=== PATIENT | female | born 1970 | race Caucasian/White ===

== ENCOUNTER → 2020-01-21 15:10 | Outpatient (BNVA) | payer BC, SELFPAY | PROVIDERS: PCP Nurse Practitioner Family; Referring Provider Nurse Practitioner Family; Visit Provider Orthopaedic Surgery | DX: M25.561 Pain in right knee (principal); M17.11 Unilateral primary osteoarthritis, right knee | CPT/HCPCS: 73560; 73565 ==

== ENCOUNTER → 2022-11-12 09:33 | Outpatient (BNVA) | payer MEDICAID, SELFPAY | PROVIDERS: PCP Family Medicine; Visit Provider Surgery | DX: Z12.11 Encounter for screening for malignant neoplasm of colon (principal) | CPT/HCPCS: 99024; 99203 ==

== ENCOUNTER 2022-11-26 10:19 | Outpatient (CLI) | payer MEDICAID, SELFPAY ==
--- NOTE | 2022-11-26 10:29 | MM_ITS ---
WS: [id number] BILATERAL SCREENING DIGITAL TOMOSYNTHESIS MAMMOGRAM WITH CAD HISTORY: SCREENING COMPARISON: None available. Bilateral CC and MLO views with tomosynthesis and synthetic mammography submitted. Computer aided det ection analyzed. Breast composition: There are scattered areas of fibroglandular density. No suspicious masses, microc alcifications or architectural distortion. Benign calcifications within each breast. IMPRESSION: MM/[place] [id number] BI-RADS: 2-Benign FOLLOW UP: 1 Year Follow-up
== END 2022-11-26 10:20 | disposition home or self-care (01) ==
PROVIDERS: PCP Family Medicine; Visit Provider Family Medicine
DX: Z12.31 Encounter for screening mammogram for malignant neoplasm of breast (principal)
CPT/HCPCS: 77063; 77067

== ENCOUNTER 2023-01-12 09:01 | Day surgery (SDC) | payer MEDICAID, SELFPAY ==
--- NOTE | 2023-01-12 09:06 | PM.HP ---
Providers/Chief Complaint Primary Care Provider: Ronald Cordero Chief Complaint: Colon cancer screening History of Present Illness Kerrie Carrington is a 52 year old female Review of Systems General: Reports: 10 or more systems reviewed and unremarkable except in HPI and below Medications/Allergies Home Medications Medication Instructions Recorded Confirmed Last Taken Type benzonatate 100 mg capsule 100 mg PO DAILY 01/21/20 01/10/23 Unknown History (Estephania Castro) dulaglutide 0.75 mg/0.5 mL 0.75 mg SUBCUT .weekly 01/21/20 01/10/23 12/29/22 History subcutaneous pen injector (Trulicity) gabapentin 400 mg capsule 400 mg PO TID 01/21/20 01/10/23 01/10/23 History hydrocodone 5 mg-acetaminophen 325 1 tab PO Q8H PRN Pain 01/21/20 01/10/23 01/10/23 History mg tablet ([place]) lisinopril 20 mg tablet 20 mg PO DAILY 01/21/20 01/10/23 01/10/23 History meloxicam 7.5 mg tablet 7.5 mg PO DAILY 01/21/20 01/10/23 01/10/23 History metformin 1,000 mg tablet 1,000 mg PO BID 01/21/20 01/10/23 01/10/23 History insulin human U-100 NPH-regulr ml SUBCUT 11/12/22 11/12/22 01/07/23 History 70-30 mix 100 unit/mL subcutaneous susp (Humulin 70/30 U-100 Insulin) pioglitazone 30 mg tablet 30 mg PO DAILY 11/12/22 01/10/23 01/10/23 History simvastatin 20 mg tablet 20 mg PO DAILY 11/12/22 01/10/23 01/07/23 History budesonide-formoterol HFA 160 2 puff inhalation BID 01/10/23 01/10/23 01/03/23 History mcg-4.5 mcg/actuation aerosol inhaler (Symbicort) bupropion HCl 150 mg tablet,12 hr 150 mg PO DAILY 01/10/23 01/10/23 01/10/23 History sustained-release buspirone 5 mg tablet 5 mg PO TID 01/10/23 01/10/23 01/10/23 History tizanidine 2 mg tablet 2 mg PO TID PRN Muscle Spasm 01/10/23 01/10/23 01/09/23 History varenicline 1 mg tablet 1 mg PO BID 01/10/23 01/10/23 01/10/23 History Allergies Allergy/AdvReac Type Severity Reaction Status Date / Time tramadol Allergy hives Verified 11/12/22 10:29 PFSH Acute PFSH: Medical History (Updated 01/12/23 @ 09:06 by Dallas Martino DO) COPD (chronic obstructive pulmonary disease) Hypertension Type 2 diabetes mellitus Surgical History (Updated 01/12/23 @ 09:06 by Dallas Martino DO) Hx laparoscopic cholecystectomy Hx of section Family History Unknown Cancer colon- grandma mother lung/cervical Hypertension Stroke Social History Smoking and tobacco/nicotine status: current every day tobacco/nicotine user Alcohol intake: never Substance/Drug Use: never A&P Assessment and plan (1) Colon cancer screening: Plan Colonoscopy Attestations Medical Necessity Statement*: Home Coding Level of Care Code Acute Code for Chg Fwd Diagnoses Colon cancer screening Z12.11
[2023-01-12 09:13] VITALS: BMI 48.9
[2023-01-12 09:22] VITALS: BP 182/88; PULSE 76; RESP 20; TEMP 36.3; O2SAT 93
--- NOTE | 2023-01-12 09:28 | ANES.PREANE2 ---
Pre-Anesthetic Assessment Height/Weight: Height 1.65 m Weight 133.356 kg Temp Pulse Resp BP Pulse Ox O2 Del Method 97.3 F L 76 20 H 182/88 93 Room Air 01/12/23 09:22 01/12/23 09:22 01/12/23 09:22 01/12/23 09:22 01/12/23 09:22 01/12/23 09:22 Preop Diagnosis: screening Operation Date: 01/12/23 10:00 Proposed Procedures p Colonoscopy 47148,Z12.11(Not Applicable) - Dallas Martino DO Familial anesthetic complications: none Was Beta Juliana taken within 24 hours: N/A Last intake: Intake Last Liquid Date 01/11/23 Last Liquid Time 23:30 Last Solid Date 01/10/23 Last Solid Time 14:00 Social Tobacco (0.5 ppd) and No alcohol Exam alert, oriented x 3, clear to auscultation bilaterally and regular rate & rhythm Airway Submandibular: within normal limits Cervical ROM: within normal limits Mallampati: Class II Dentition: chipped and loose Comments: Comments: right incisor loose patient educated on risk. Pulmonary Chronic Obstructive Pulmonary Disease CV/HEM Hypertension None reported Hepatic enlarged GI None reported Metabolic Diabetes Mellitus, Hyperlipidemia and Morbid Obesity GLP1 held 2 weeks denies symptoms of reflux. A1C 8.4 3 months prior doesn't check glucose at home Musc/skel Lower Back Pain and Osteoarthritis/DJD Neuropsych Anxiety, Depression and Neuropathy (hands and feet) Anesthetic Plan ASA status: 3 Anesthesia: MAC Medications/Allergies Home Medications Medication Instructions Recorded Confirmed Last Taken Type benzonatate 100 mg capsule 100 mg PO DAILY 01/21/20 01/10/23 01/11/23 History (Estephania Castro) dulaglutide 0.75 mg/0.5 mL 0.75 mg SUBCUT .weekly 01/21/20 01/10/23 12/29/22 History subcutaneous pen injector (Trulicity) gabapentin 400 mg capsule 400 mg PO TID 01/21/20 01/10/23 01/11/23 History hydrocodone 5 mg-acetaminophen 325 1 tab PO Q8H PRN Pain 01/21/20 01/12/23 01/12/23 History mg tablet ([place]) lisinopril 20 mg tablet 20 mg PO DAILY 01/21/20 01/10/23 01/11/23 History meloxicam 7.5 mg tablet 7.5 mg PO DAILY 01/21/20 01/10/23 01/11/23 History metformin 1,000 mg tablet 1,000 mg PO BID 01/21/20 01/10/23 01/11/23 History insulin human U-100 NPH-regulr ml SUBCUT 11/12/22 11/12/22 01/10/23 History 70-30 mix 100 unit/mL subcutaneous susp (Humulin 70/30 U-100 Insulin) pioglitazone 30 mg tablet 30 mg PO DAILY 11/12/22 01/10/23 01/11/23 History simvastatin 20 mg tablet 20 mg PO DAILY 11/12/22 01/10/23 01/11/23 History budesonide-formoterol HFA 160 2 puff inhalation BID 01/10/23 01/10/23 01/11/23 History mcg-4.5 mcg/actuation aerosol inhaler (Symbicort) bupropion HCl 150 mg tablet,12 hr 150 mg PO DAILY 01/10/23 01/10/23 01/11/23 History sustained-release buspirone 5 mg tablet 5 mg PO TID 01/10/23 01/10/23 01/11/23 History tizanidine 2 mg tablet 2 mg PO TID PRN Muscle Spasm 01/10/23 01/12/23 01/12/23 History varenicline 1 mg tablet 1 mg PO BID 01/10/23 01/10/23 01/10/23 History sertraline 50 mg tablet 50 mg PO DAILY 01/12/23 01/12/23 01/11/23 History Allergies Allergy/AdvReac Type Severity Reaction Status Date / Time tramadol Allergy hives Verified 01/12/23 09:13 [facility] Anesthesia Medical History (Updated 01/12/23 @ 09:06 by Dallas Martino DO) COPD (chronic obstructive pulmonary disease) Hypertension Type 2 diabetes mellitus Surgical History (Updated 01/12/23 @ 09:06 by Dallas Martino DO) Hx laparoscopic cholecystectomy Hx of section Family History Unknown Cancer colon- grandma mother lung/cervical Hypertension Stroke Social History Smoking and tobacco/nicotine status: current every day tobacco/nicotine user Alcohol intake: never Substance/Drug Use: never Data Anesthesia Cardiac Studies: No Data to Display
[2023-01-12] MEDS: sodium chloride 0.9% 1,000 ML 30 ML IV (09:32)
[2023-01-12 09:37] LABS: Glucose Point of Care 194 mg/dL (70-110)
[2023-01-12 10:12] VITALS: BP 123/68; PULSE 73; RESP 14; TEMP 36.1; O2SAT 94
[2023-01-12 10:23] VITALS: BP 133/70; PULSE 68; RESP 18; O2SAT 94
--- NOTE | 2023-01-12 10:35 | ANE.PACU2 ---
Inpatient post-anesthesia follow up: Airway intact: Yes Vital signs: Temperature 97 F Pulse Rate 68 Respiratory Rate 18 Blood Pressure 133/70 Pulse Oximetry 94 Oxygen Delivery Me thod Room Air Oxygen Flow Rate Fraction of Inspir ed Oxygen Hydration adequate: Yes Nausea and vomiting: No Pain level: 1 Mental status: Baseline
== END 2023-01-12 10:38 | disposition home or self-care (01) ==
PROVIDERS: PCP Family Medicine; Visit Provider Surgery
PROC: 0DJD8ZZ Inspection of Lower Intestinal Tract, Via Natural or Artificial Opening Endoscopic (ICD-10-PCS; CPT 45378; principal; 2023-01-12 10:00)
DX: Z12.11 Encounter for screening for malignant neoplasm of colon (principal); D12.0 Benign neoplasm of cecum; D12.8 Benign neoplasm of rectum; E11.9 Type 2 diabetes mellitus without complications; Z79.84 Long term (current) use of oral hypoglycemic drugs; J44.9 Chronic obstructive pulmonary disease, unspecified; I10 Essential (primary) hypertension; F17.200 Nicotine dependence, unspecified, uncomplicated; E66.01 Morbid (severe) obesity due to excess calories; Z68.42 Body mass index [BMI] 45.0-49.9, adult
CPT/HCPCS: 36416; 45385; 82962; 88305; J2704; J7030

== ENCOUNTER → 2023-02-01 13:36 | Outpatient (BNVA) | payer MEDICAID, SELFPAY | PROVIDERS: PCP Family Medicine; Visit Provider Surgery | DX: R10.9 Unspecified abdominal pain (principal); K52.9 Noninfective gastroenteritis and colitis, unspecified; K63.5 Polyp of colon; K92.1 Melena | CPT/HCPCS: 87045; 87177; 87209; 87338; 87427; 87449; 87493; 99214 ==